=== PATIENT | female | born 1945 | race Caucasian/White ===

== ENCOUNTER 2019-06-29 18:16 | Inpatient (IN) | payer MEDICARE ==
[~2019-06-29] VITALS: Ht 162.6 cm; Wt 62.8 kg
[2019-06-29] MEDS ORDERED: ASPIRIN 325 MG TABLET ONE (18:26)
[2019-06-29] MEDS ORDERED: ASPIRIN 325 MG TABLET PO STA (18:46)
[2019-06-29] MEDS ORDERED: DOCUSATE 100 MG CAPSULE PO PRN (19:30)
[2019-06-29] MEDS ORDERED: POLYETHYLENE GLYCOL 17 GM PACKET PO PRN (19:30)
[2019-06-29] MEDS ORDERED: ONDANSETRON 4 MG TABLET PO PRN (19:30)
[2019-06-29] MEDS ORDERED: ACETAMINOPHEN 650 MG/20.3 ML UDC PO PRN (19:30)
[2019-06-29] MEDS ORDERED: BISACODYL 10 MG SUPP PR PRN (19:30)
--- NOTE | 2019-06-29 19:44 | NUR ---
Attempted to call report to [phone], nurse unavailable at this time.
[2019-06-29 20:42] VITALS: BP 121/80
[2019-06-29] MEDS ORDERED: ATORVASTATIN 40 MG TABLET PO SCH (21:00)
[2019-06-30 02:57] VITALS: BP 116/67
[2019-06-30 05:56] LABS: BASOPHILS # (AUTO) 0.02 x10^3/uL (0-0.1); BASOPHILS % (AUTO) 0 % (0-1); EOSINOPHILS # (AUTO) 0.17 x10^3/uL (0-0.4); EOSINOPHILS % (AUTO) 3 % (1-7); LYMPHOCYTES # (AUTO) 1.59 x10^3/uL (1-3.4); LYMPHOCYTES % (AUTO) 27 % (22-44); MD NO; MEAN CORPUSCULAR HEMOGLOBIN 29.5 pg (27.0-34.8); MEAN CORPUSCULAR HGB CONC 32.9 g/dL (32.4-35.8); MEAN CORPUSCULAR VOLUME 89.5 fL (80-100); MEAN PLATELET VOLUME 7.9 fL (7.4-10.4); MONOCYTES # (AUTO) 0.62 x10^3/uL (0.2-0.8); MONOCYTES % (AUTO) 11 % (2-9); NEUTROPHILS # (AUTO) 3.51 x10^3/uL (1.8-6.8); NEUTROPHILS % (AUTO) 59 % (42-75); PLATELET COUNT 289 x10^3/uL (130-400); RED BLOOD COUNT 4.63 x10^6/uL (3.82-5.3); RED CELL DISTRIBUTION WIDTH 16.2 % (9.6-15.2)
[2019-06-30] MEDS ORDERED: ASPIRIN 325 MG TABLET EC PO SCH (06:00)
[2019-06-30 06:04] LABS: CHLORIDE 112 mmol/L (98-107)
[2019-06-30 06:17] LABS: ALANINE AMINOTRANSFERASE 34 U/L (12-78); ALBUMIN 3.4 g/dL (3.4-5.0); ALKALINE PHOSPHATASE 115 U/L (45-117); ANION GAP 8 mmol/L (5-15); BILIRUBIN,TOTAL 0.7 mg/dL (0.2-1.0); CALCIUM 9.5 mg/dL (8.5-10.1); CHOLESTEROL, TOTAL 170 mg/dL (140-239); CREATININE 0.82 mg/dL (0.55-1.02); HDL CHOL % 50 % (28-40); HDL CHOLESTEROL (DIRECT) 85 mg/dL (40-60); LDL CHOLESTEROL,CALCULATED 70 mg/dL (54-169); LDL/HDL RATIO 0.8 (0.5-3.0); TOTAL PROTEIN 6.6 g/dL (6.4-8.2); TRIGLYCERIDES 76 mg/dL (50-200); VLDL CHOLESTEROL 15 mg/dL (0-25)
[2019-06-30 06:55] VITALS: BP 106/68
[2019-06-30 13:18] VITALS: BP 102/68
[2019-06-30] MEDS ORDERED: ATOR-2 PO (14:24)
[2019-06-30] MEDS ORDERED: ASPI81TA45 PO (14:24)
[2019-06-30] MEDS ORDERED: CLOP75TA PO (14:24)
[2019-06-30] MEDS ORDERED: ATORVASTATIN 80 MG TABLET PO SCH (21:00)
[2019-07-01] MEDS ORDERED: CLOPIDOGREL 75 MG TABLET PO SCH (09:00)
== END 2019-06-30 16:26 | disposition home health service (06) | DRG 65 ==
LOC: ED 18:52 → EDIP 19:26 → 4WST 20:18
DX: I63.9 Cerebral infarction, unspecified (principal); I50.32 Chronic diastolic (congestive) heart failure; E78.5 Hyperlipidemia, unspecified; I11.0 Hypertensive heart disease with heart failure; H53.47 Heteronymous bilateral field defects; I65.29 Occlusion and stenosis of unspecified carotid artery; Z66 Do not resuscitate; Z82.0 Family history of epilepsy and other diseases of the nervous system; Z86.73 Personal history of transient ischemic attack (TIA), and cerebral infarction without residual deficits
CPT/HCPCS: 36415; 80053; 80061; 85025; 93306; G0378; 92523-GN